=== PATIENT | female | born 1930 | race Hispanic/Latino ===

== ENCOUNTER → 2019-11-27 | Outpatient (CLI) | payer MEDICARE, OTHER | END | disposition home or self-care (01) | LOC: OIH 09:33 | PROVIDERS: ATTEND Family Medicine | DX: M17.12 Unilateral primary osteoarthritis, left knee (principal); M76.9 Unspecified enthesopathy, lower limb, excluding foot; M79.89 Other specified soft tissue disorders; M85.88 Other specified disorders of bone density and structure, other site | CPT/HCPCS: 73562; 73590 ==